=== PATIENT | male | born 1995 | race African-American/Black ===

== ENCOUNTER 2019-06-23 15:25 | Emergency (ER) | payer OTHER ==
[~2019-06-23] VITALS: Ht 172.7 cm; Wt 72.6 kg
--- NOTE | ~2019-06-23 | EKG ---
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
[2019-06-23 15:52] LABS: URINE BILIRUBIN NEGATIVE (Negative); URINE BLOOD NEGATIVE (Negative); URINE CLARITY CLEAR; URINE COLOR YELLOW; URINE GLUCOSE-RANDOM* NEGATIVE (Negative); URINE KETONES NEGATIVE (Negative); URINE LEUKOCYTES-REFLEX NEGATIVE (Negative); URINE NITRITE-REFLEX NEGATIVE (Negative); URINE PROTEIN (DIPSTICK) NEGATIVE (Negative); URINE SPECIFIC GRAVITY 1.015 (1.005-1.035)
[2019-06-23 18:43] VITALS: BP 134/92
--- NOTE | 2019-06-26 07:34 | EKG ---
[place] [address] [place] [address] ELECTROCARDIOGRAM REPORT Name: SERGIO FIELDS Room #: DEP LUAN Kim#: [id number] Admission: 06/23/19 Attend Phys: Discharge: 06/23/19 Date of : [birth year] Report #: [id number] THIS REPORT FOR: //name// [facility] ED Test Date: 2019-06-23 Test Time: 15:53:14 Pat Name: SERGIO FIELDS Department: Room: Gender: Manager Mall: JIMMIE : 1995 Requested By: Claire Feliz Order Number: [id number] MD: Jeronimo Elizondo Measurements Intervals [place] Rate: 135 P: 87 [place]: 134 QRS: 254 QRSD: 75 T: 55 QT: 305 QTc: 458 Interpretive Statements Sinus tachycardia Left anterior fascicular block Poor R wave progression No previous ECG available for comparison Electronically Signed On 06-26-2019 7:34:41 [employer]OTE M[employer] UNDERWRITER by Jeronimo Elizondo [email or web address] <ELECTRONICALLY SIGNED> By: Jeronimo Elizondo MD, [facility] 06/26/19 0734 1553 1553 Jeronimo Elizondo MD, FACC /EPI
== END 2019-06-23 18:43 | disposition home or self-care (01) ==
LOC: ER 15:25
PROVIDERS: Physician Assistant
DX: N50.812 Left testicular pain (principal); Z20.2 Contact with and (suspected) exposure to infections with a predominantly sexual mode of transmission